=== PATIENT | female | born 1965 | race Hispanic/Latino ===

== ENCOUNTER 2019-06-08 13:11 | Emergency (ER) | payer MEDICAID ==
--- NOTE | 2019-06-08 13:26 | Emergency Department Report ---
Blank Doc - Documentation Documentation: 54-year-old female that presents with left ankle pain after twisting it. This initial assessment/diagnostic orders/clinical plan/treatment(s) is/are subject to change based on patient's health status, clinical progression and re- assessment by fellow clinical providers in the ED. Further treatment and workup at subsequent clinical providers discretion. Patient/guardians urged not to elope from the ED as their condition may be serious if not clinically assessed and managed. Initial orders include: 1- Patient sent to [facility] for further evaluation and treatment 2- xrays
--- NOTE | 2019-06-08 14:34 | XRay Report ---
LEFT ANKLE 3 VIEWS INDICATION / CLINICAL INFORMATION: pain s/p fall COMPARISON: None available. FINDINGS: BONES / JOINT(S): No acute fracture or subluxation. No significant arthritis. SOFT TISSUES: No significant abnormality. ADDITIONAL FINDINGS: None. Signer Name: Jemal Yan MD Signed: 06/08/2019 2:29 PM Workstation Name: [id number]
--- NOTE | 2019-06-08 16:25 | Emergency Department Report ---
ED Lower Extremity HPI - General Chief Complaint: Extremity Injury, Lower Stated Complaint: LT FOOT INJURY Time Seen by Provider: 06/08/19 13:25 Source: patient Mode of arrival: Ambulatory Limitations: No Limitations - History of Present Illness Initial Comments: 54-year-old female that presents with left ankle pain after twisting it. Patient took Motrin yesterday about 11 PM and Tylenol today about 12 PM. Patient reports painful with bearing weight. Onset/Timin -: days(s) Injury: Ankle: Left, Right (twisted ankle) Type of Injury: hyperflexion Severity: moderate Severity scale (0 -10): 7 Improves With: immobilization Worsens With: weight bearing Associated Symptoms: swelling, able to partially bear weight Treatments Prior to Arrival: other (Tylenol at 12 PM) - Related Data Home Medications Medication Instructions Recorded Confirmed Last Taken ALPRAZolam [Xanax TAB] 1 mg PO BID PRN 08/03/14 08/18/15 05/30/16 Aspirin EC [Aspirin Enteric Coated 81 mg PO QDAY 08/03/14 08/18/15 05/26/16 TAB] Atorvastatin (Nf) [Lipitor (Nf)] 10 mg PO QHS 08/03/14 08/18/15 05/29/16 Fenofibrate Nanocrystallized 145 mg PO HS 08/03/14 08/18/15 05/29/16 [Tricor] Lisinopril 2.5 mg PO DAILY 08/03/14 08/18/15 05/31/16 06:00 Omeprazole [PriLOSEC] 20 mg PO QDAY 08/17/15 08/18/15 05/29/16 Previous Rx's Medication Instructions Recorded Last Taken Type Hydrocodone Bit/Acetaminophen 1 each PO Q6HR #14 tablet 06/15/13 05/29/16 Rx [Lortab 5-500 Tablet] Phenytoin [Dilantin] 300 mg PO QHS #90 capsule 06/15/13 05/29/16 Rx Allergies Allergy/AdvReac Type Severity Reaction Status Date / Time Penicillins Allergy Rash Verified 01/04/14 17:05 tramadol Allergy Seizure Verified 08/17/15 15:56 ED Review of Systems ROS: Stated complaint: LT FOOT INJURY Other details as noted in HPI Comment: All other systems reviewed and negative ED Past Medical Hx - Past Medical History Previous Medical History?: Yes Hx Hypertension: Yes ('08) Hx GERD: Yes (2006) Hx Renal Disease: No Hx Headaches / Migraines: Yes Hx Seizures: Yes (1980; LAST WAS 02/11) Additional medical history: high cholesterol, anxiety, - Surgical History Past Surgical History?: Yes Additional Surgical History: hysterectomy, screw in right shoulder from fall during seizure - Social History Smoking Status: Never Smoker Substance Use Type: None - Medications Home Medications: Home Medications Medication Instructions Recorded Confirmed Last Taken Type Hydrocodone Bit/Acetaminophen 1 each PO Q6HR #14 tablet 06/15/13 08/18/15 05/29/16 Rx [Lortab 5-500 Tablet] Phenytoin [Dilantin] 300 mg PO QHS #90 capsule 06/15/13 08/18/15 05/29/16 Rx ALPRAZolam [Xanax TAB] 1 mg PO BID PRN 08/03/14 08/18/15 05/30/16 History Aspirin EC [Aspirin Enteric Coated 81 mg PO QDAY 08/03/14 08/18/15 05/26/16 History TAB] Atorvastatin (Nf) [Lipitor (Nf)] 10 mg PO QHS 08/03/14 08/18/15 05/29/16 History Fenofibrate Nanocrystallized 145 mg PO HS 08/03/14 08/18/15 05/29/16 History [Tricor] Lisinopril 2.5 mg PO DAILY 08/03/14 08/18/15 05/31/16 06:00 History Omeprazole [PriLOSEC] 20 mg PO QDAY 08/17/15 08/18/15 05/29/16 History ED Physical Exam - General Limitations: No Limitations General appearance: alert, in no apparent distress - Head Head exam: Present: atraumatic, normocephalic - Eye Eye exam: Present: normal appearance - ENT ENT exam: Present: mucous membranes moist - Expanded Lower Extremity Exam Left Hip exam: Present: normal inspection Upper Leg exam: Present: normal inspection Knee exam: Present: normal inspection Lower Leg exam: Present: normal inspection Ankle exam: Present: full ROM, tenderness, swelling (lateral malleolus). Absent: ecchymosis, crepidus, dislocation, erythema, anterior draw sign Foot/Toe exam: Present: full ROM Neuro vascular tendon exam: Present: no vascular compromise Gait: Positive: observed and limited by pain - Back Exam Back exam: Present: normal inspection - Neurological Exam Neurological exam: Present: alert, oriented X3 - Psychiatric Psychiatric exam: Present: normal affect, normal mood - Skin Skin exam: Present: warm, dry, intact, normal color. Absent: rash ED Course Vital Signs 06/08/19 13:29 Temperature 97.6 F Pulse Rate 95 H Respiratory 18 Rate Blood Pressure 150/85 O2 Sat by Pulse 100 Oximetry ED Lower Extremity MDM - Medical Decision Making 54-year-old female that presents with left ankle pain after twisting it. X-ray of ankle is negative for any acute fractures or dislocation or swelling. Critical care attestation.: If time is entered above; I have spent that time in minutes in the direct care of this critically ill patient, excluding procedure time. ED Disposition Clinical Impression: Ankle sprain Disposition: DC-01 TO HOME OR SELFCARE Is pt being admited?: No Does the pt Need Aspirin: No Condition: Stable Instructions: Ankle Sprain (ED), Ankle Stirrup Splint (ED) Additional Instructions: Take Tylenol or ibuprofen as needed for pain management. Your splint and follow-up with orthopedic provider for any further concerns. X-rays were negative for any fractures Referrals: BRANT AHUJA MD [Staff Physician] - 3-5 Days
[2019-06-08 17:08] VITALS: BP 108/69
== END 2019-06-08 16:59 | disposition home or self-care (01) ==
LOC: ED 13:11
DX: S93.402A Sprain of unspecified ligament of left ankle, initial encounter (principal); I10 Essential (primary) hypertension; K21.9 Gastro-esophageal reflux disease without esophagitis; G43.909 Migraine, unspecified, not intractable, without status migrainosus; G40.909 Epilepsy, unspecified, not intractable, without status epilepticus; F41.9 Anxiety disorder, unspecified; Z79.899 Other long term (current) drug therapy; Z90.710 Acquired absence of both cervix and uterus; Z79.4 Long term (current) use of insulin; Z88.8 Allergy status to other drugs, medicaments and biological substances; X50.1XXA Overexertion from prolonged static or awkward postures, initial encounter; Y93.89 Activity, other specified; Y92.89 Other specified places as the place of occurrence of the external cause; Y99.8 Other external cause status

== ENCOUNTER 2021-01-17 07:42 | Day surgery (SDC) | payer MEDICAID ==
[2021-01-17] MEDS ORDERED: SODIUM CHLORIDE 0.9% 500 ML 500 ML IV SCH ×2 (09:00→10:00)
[2021-01-17] MEDS ORDERED: SODIUM CHLORIDE 0.45% 500 ML IV SCH (09:00)
[2021-01-17 09:09] LABS: Basophils # (Auto) 0.1 K/mm3 (0.0-0.1); Basophils % (Auto) 0.6 % (0.0-1.8); Eosinophils # (Auto) 0.2 K/mm3 (0.0-0.4); Eosinophils % (Auto) 1.5 % (0.0-4.3); Hematocrit 34.2 % (30.3-42.9); Hemoglobin 12.2 gm/dl (10.1-14.3); Lymphocytes # (Auto) 2.8 K/mm3 (1.2-5.4); Lymphocytes % (Auto) 24.1 % (13.4-35.0); Mean Corpuscular HGB Conc 36 % (30-34); Mean Corpuscular Volume 91 fl (79-97); Monocytes # (Auto) 0.9 K/mm3 (0.0-0.8); Monocytes % (Auto) 7.7 % (0.0-7.3); Platelet Count 423 K/mm3 (140-440); Red Blood Count 3.77 M/mm3 (3.65-5.03); Red Cell Distribution Width 14.1 % (13.2-15.2)
[2021-01-17 09:21] LABS: INR 0.86 (0.87-1.13)
[2021-01-17] MEDS ORDERED: SODIUM CHLORIDE 0.9% 500 ML 500 ML ONE (09:22)
[2021-01-17 09:57] LABS: Blood Urea Nitrogen 10 mg/dL (7-17); Calcium 9.9 mg/dL (8.4-10.2); Hemolysis Index 4
[2021-01-17 09:59] LABS: BUN/Creatinine Ratio 14
--- NOTE | 2021-01-17 10:26 | Electrocardiograph Report ---
[facility] Test Date: 2021-01-17 Test Time: 09:20:31 Pat Name: ELICIA PAN Department: Room: Gender: F Machinery Rigger: KONG : 1965 Requested By: YRIS BLANCO Order Number: [id number] Reading MD: Yris Blanco Measurements Intervals [place] Rate: 74 P: 33 NH: 145 QRS: -10 QRSD: 90 T: 17 QT: 386 QTc: 427 Interpretive Statements Sinus rhythm Possible inferior infarct, old No previous ECG available for comparison Electronically Signed On 01-17-2021 10:26:01 EDT by Yris Blanco
[2021-01-17] MEDS ORDERED: HEPARIN/NS 5000 UNIT/500ML 1,000 ML IR ONE (11:03)
[2021-01-17] MEDS: fentaNYL 100 MCG/2 ML INJ ONE ×3 (11:47→12:16)
[2021-01-17] MEDS: HEPARIN 10,000 UNITS/10 ML VIAL ONE ×2 (11:48→12:10)
[2021-01-17] MEDS: LIDOCAINE (2%) 20 MG/1 ML VIAL 20 ML MDV INFILTRATI ONE ×2 (11:48→12:09)
[2021-01-17] MEDS: MIDAZOLAM 2 MG/2 ML INJ ONE ×2 (11:48→12:08)
[2021-01-17] MEDS: NITROGLYCERIN SYRINGE 3 ML ONE ×2 (11:49→12:10)
[2021-01-17] MEDS: VERAPAMIL 5 MG/2 ML INJ ONE ×2 (11:49→12:10)
--- NOTE | 2021-01-17 12:52 | Cardiac Catherization Report ---
DATE OF SERVICE: 01/17/2021 CARDIAC CATHETERIZATION REPORT REASON FOR PROCEDURE: Chest pain. PROCEDURES PERFORMED: 1. Left heart catheterization. 2. Selective left and right coronary angiography. 3. Left ventricular angiography. 4. Sedation time start 12:08, end 12:25. DESCRIPTION OF PROCEDURE: The patient was prepped and draped in a sterile fashion after informed consent. The right radial cath site was prepped and draped after a negative Raffi's test. The right radial artery was entered using Seldinger technique followed by placement of a 6-Slovak hydrophilic sheath. Routine radial cocktail was administered via the sheath. Selective left and right coronary angiography was performed using a #3.5 left Anthony and a #4 right Anthony. The pigtail catheter was used for left ventricular angiography. The catheters were then removed, sheath removed and hemostasis achieved using a TR band. The patient was returned to the postprocedure unit in stable condition. There were no complications. FINDINGS: Hemodynamics: Left ventricular end diastolic pressure was 10. Ascending aortic pressure was 109/58. There was no significant pressure gradient on pullback across the aortic valve. CORONARY ANGIOGRAPHY: There was moderate diffuse coronary calcification involving the left coronary system. The left main coronary artery contained a distal tapering with an up to 10% luminal narrowing before its bifurcation into the LAD and circumflex systems. The LAD contained mild proximal narrowing, followed by mild atherosclerosis of its mid and distal segments. No significant obstructive lesions were noted in either the LAD or diagonal branches. The circumflex artery was a large caliber system, and was dominant. This vessel contained mild atherosclerosis of its mid AV groove segment. The right coronary artery was a relatively small caliber, and nondominant vessel. There was diffuse moderate atherosclerosis of the mid vessel. No significant obstructive lesions were noted in either left or right coronary systems. There was normal left ventricular systolic function with ejection fraction 55-60%. CONCLUSIONS: 1. Diffuse mild nonobstructive atherosclerosis as described above. 2. No significant obstructive lesions. 3. Left circumflex dominant system. 4. Well preserved left ventricular systolic function, ejection fraction 55-60%. RECOMMENDATIONS: Aggressive risk factor modification is recommended, including smoking cessation. TID: [id number] RECEIPT: [id number] CA/EKT
--- NOTE | 2021-01-17 13:49 | Discharge Summary ---
Short Stay Discharge Plan Activity: advance as tolerated Weight Bearing Status: Full Weight Bearing Diet: low fat, low cholesterol, low salt Wound: keep clean and dry Special Instructions: smoking cessation, no heavy lifting (3 days) Follow up with: KAMAR HAND MD [Primary Care Provider] - 7 Days TRAM SIERRA MD [Staff Physician] - 7 Days
[2021-01-17] MEDS ORDERED: traMADol 50 MG TAB PO PRN (14:00)
[2021-01-17] MEDS ORDERED: SODIUM CHLORIDE 0.9% 1000 ML 1,000 ML IV SCH (14:00)
[2021-01-17 14:34] VITALS: BP 113/60
== END 2021-01-17 15:38 | disposition home or self-care (01) ==
LOC: CATHLABREC 07:42 → CATH 07:42 → CATHLABREC 15:38
PROVIDERS: ATTEND Internal Medicine Cardiovascular Disease
DX: R07.89 Other chest pain (principal); I25.10 Atherosclerotic heart disease of native coronary artery without angina pectoris; F17.210 Nicotine dependence, cigarettes, uncomplicated; E78.00 Pure hypercholesterolemia, unspecified; I10 Essential (primary) hypertension; K21.9 Gastro-esophageal reflux disease without esophagitis; F32.9 Major depressive disorder, single episode, unspecified; F41.9 Anxiety disorder, unspecified; Z88.0 Allergy status to penicillin; Z88.8 Allergy status to other drugs, medicaments and biological substances; Z79.899 Other long term (current) drug therapy; Z79.82 Long term (current) use of aspirin; Z90.710 Acquired absence of both cervix and uterus; Z85.41 Personal history of malignant neoplasm of cervix uteri; Z98.890 Other specified postprocedural states; Z86.2 Personal history of diseases of the blood and blood-forming organs and certain disorders involving the immune mechanism
CPT/HCPCS: 36415; 80048; 85025; 85610; 85730; 93005; 93458; 99156; C1894; J1644; J2250; J3010; J7040; Q9967